=== PATIENT | female | born 1965 | race Two or more races ===

== ENCOUNTER 2024-06-16 06:33 | Day surgery (SDC) | payer OTHER ==
[2024-06-16] MEDS ORDERED: MIDAZOLAM HCL 2 MG/2 ML VIAL IV ONE (12:00)
[2024-06-16] MEDS ORDERED: fentaNYL CITRATE 50 MCG/ML AMPUL IV PUSH ONE (12:00)
[2024-06-16] MEDS ORDERED: DIPHENHYDRAMINE HCL 50 MG/ML VIAL 1ML IV ONE (12:00)
== END 2024-06-16 11:45 | disposition home or self-care (01) ==
LOC: AMB-ENDOS 06:33
PROVIDERS: ATTEND Internal Medicine
DX: D13.2 Benign neoplasm of duodenum (principal); K31.7 Polyp of stomach and duodenum; K29.70 Gastritis, unspecified, without bleeding; Z86.0101 Personal history of adenomatous and serrated colon polyps; K29.80 Duodenitis without bleeding

== ENCOUNTER 2025-01-12 07:00 | Day surgery (SDC) | payer OTHER ==
[2025-01-12] MEDS ORDERED: fentaNYL CITRATE 50 MCG/ML AMPUL IV PUSH ONE (10:30)
[2025-01-12] MEDS ORDERED: DIPHENHYDRAMINE HCL 50 MG/ML VIAL 1ML IV ONE (10:30)
[2025-01-12] MEDS ORDERED: MIDAZOLAM HCL 2 MG/2 ML VIAL IV ONE (10:30)
[2025-01-12] MEDS ORDERED: GLUCAGON 1 MG VIAL IV STA (12:30)
== END 2025-01-12 11:45 | disposition home or self-care (01) ==
LOC: CIR.AMB 07:00
PROVIDERS: ATTEND Internal Medicine
DX: K31.7 Polyp of stomach and duodenum (principal); K29.60 Other gastritis without bleeding; K44.9 Diaphragmatic hernia without obstruction or gangrene; Z86.0101 Personal history of adenomatous and serrated colon polyps